=== PATIENT | female | born 1980 | race Hispanic/Latino ===

== ENCOUNTER 2019-03-05 17:29 | Outpatient (CLI) | payer BC ==
[2019-03-05 18:29] LABS: BHCG - Serum Negative (NEGATIVE); Pregs Control Background? CLEAR/WHITE (CLR/WHITE); Pregs Control Bar Appear? YES (CONTROL BAR)
== END 2019-03-05 17:30 | disposition home or self-care (01) ==
LOC: LABBT 17:29
PROVIDERS: ATTEND Surgery
DX: Z01.812 Encounter for preprocedural laboratory examination (principal); K61.1 Rectal abscess
CPT/HCPCS: 84703

== ENCOUNTER 2019-03-06 06:11 | Day surgery (SDC) | payer BC ==
[2019-03-05 17:43] VITALS: BMI 37.6
[2019-03-06] MEDS ORDERED: Fentanyl 100 MCG/2 ML VIAL ONE ×2 (06:33→08:39)
[2019-03-06] MEDS ORDERED: EPINEPHrine 1 MG/ML AMP ONE (06:43)
[2019-03-06] MEDS ORDERED: Lidocaine 1% w/Epinephrine 1:100K 20 ML VIAL ONE (06:43)
[2019-03-06] MEDS ORDERED: Bupivacaine 0.25% HCL 30 ML VIAL ONE (06:43)
[2019-03-06] MEDS ORDERED: Lidocaine 2% Jelly 5 ML TUBE ONE (06:43)
[2019-03-06] MEDS ORDERED: ceFOXitin 2 GM/50 ML Duplex BAG ONE (07:14)
[2019-03-06] MEDS ORDERED: Midazolam HCl 2 mg/2 ml Vial ONE (07:16)
[2019-03-06] MEDS ORDERED: HYDROmorphone 2 MG/ML VIAL ONE (08:02)
[2019-03-06] MEDS ORDERED: HYDROmorphone 0.5 MG/0.5 ML SYRINGE ONE (08:03)
[2019-03-06] MEDS ORDERED: Dexamethasone 20 MG/5 ML VIAL ONE (09:32)
[2019-03-06] MEDS ORDERED: Ondansetron PF 4 MG/2 ML Vial ONE (09:32)
[2019-03-06] MEDS ORDERED: Lidocaine 1% PF 5 ML VIAL ONE (09:32)
[2019-03-06] MEDS ORDERED: PROPOFOL 200 MG/20 ML VIAL ONE (09:32)
[2019-03-06] MEDS ORDERED: HYDROcodone/Acetaminophen 5/325 mg Tablet ONE (11:43)
--- NOTE | 2019-03-07 10:27 | OP ---
DATE OF PROCEDURE: 03/06/2019 PREOPERATIVE DIAGNOSIS: Perirectal abscess. POSTOPERATIVE DIAGNOSIS: Perirectal abscess. PROCEDURE PERFORMED: Incision and drainage of perirectal abscess. ANESTHESIA: General. ESTIMATED BLOOD LOSS: Minimal. COMPLICATIONS: None. DESCRIPTION OF PROCEDURE: The patient was taken to the operative room and laid supine on the operating table. After general anesthetic was obtained, she was placed in lithotomy position. Perineal area was prepped and draped in a sterile fashion. The area of fluctuance, swelling, and pain. A small incision was made and a pocket of purulence was found. Fistula probe was used to find a fistula, which there was none present. The wound was irrigated again. There was no underlying obvious fistula. The wound was packed using iodoform gauze and sterile gauze. The patient was sent to Recovery in stable condition. All instrument counts, needle counts, and lap counts were correct. Job ID: [id number]
== END 2019-03-06 12:58 | disposition home or self-care (01) ==
LOC: SDC 06:11
PROVIDERS: ATTEND Surgery
PROC: 0D9P3ZZ Drainage of Rectum, Percutaneous Approach (ICD-10-PCS; principal; 2019-03-06)
DX: K61.1 Rectal abscess (principal); E78.5 Hyperlipidemia, unspecified; G43.909 Migraine, unspecified, not intractable, without status migrainosus; F17.200 Nicotine dependence, unspecified, uncomplicated; R73.03 Prediabetes; E66.9 Obesity, unspecified; Z68.37 Body mass index [BMI] 37.0-37.9, adult; Z79.899 Other long term (current) drug therapy
CPT/HCPCS: J0171; J0694; J1100; J1170; J2001; J2250; J2405; J2704; J3010; S0020